=== PATIENT | female | born 1965 | race Caucasian/White ===

== ENCOUNTER 2022-11-25 17:36 | Emergency (ER) | payer BC ==
[~2022-11-25] VITALS: Ht 167.6 cm; Wt 69.4 kg
[2022-11-25 17:37] VITALS: TEMP 97.7; O2SAT 98
[2022-11-25 21:46] VITALS: BP 128/6
== END 2022-11-25 21:48 | disposition home or self-care (01) ==
LOC: M ED 17:36
DX: S52.501A Unspecified fracture of the lower end of right radius, initial encounter for closed fracture (principal); W19.XXXA Unspecified fall, initial encounter; Y92.410 Unspecified street and highway as the place of occurrence of the external cause; E03.9 Hypothyroidism, unspecified